=== PATIENT | female | born 1965 | race Caucasian/White ===

== ENCOUNTER 2019-03-11 08:05 | Emergency (ER) | payer OTHER ==
[2019-03-11 08:21] VITALS: BP 134/72
--- NOTE | 2019-03-11 08:23 | ED Physician Documentation ---
PD HPI SKIN - Stated complaint Stated Complaint: WOUND ON R SIDE OF HEAD - Chief complaint Chief Complaint: Wound - History obtained from History obtained from: Patient - History of Present Illness Timing - onset: How many weeks ago (The patient has had a small cyst on the right side of her head for as long as she can remember. She had it evaluated at one point in was deemed benign and not to worry unless it changes. In the last couple of weeks while on a vacation, she has noticed some increase in size of it and some slight tenderness. The last couple of days it is become larger still and more tender in this morning it popped open on its own while she was taking a shower and drained some thick material. She is feeling well otherwise.) Timing - duration: Weeks Timing - details: Gradual onset Location: Scalp (right parietal area) Quality / character: Painful (increasingly the past couple of weeks.), Raised, Swelling, Draining (this morning) Associated symptoms: No: Fever, Myalgias, N/V/D Similar symptoms before: Has not had sx before Recently seen: Not recently seen Review of Systems Constitutional: denies: Fever, Chills, Myalgias GI: denies: Nausea, Vomiting Skin: reports: Lesions PD PAST MEDICAL HISTORY - Past Medical History Past Medical History: No - Past Surgical History Past Surgical History: Yes Ortho: Arthroscopic surgery /[employer]: Oophrectomy - Present Medications Home Medications: Ambulatory Orders Medication Instructions Recorded Confirmed RX: Mupirocin 1 applic TP TID #15 g 03/11/19 Sulfamethox/Trimeth 800/160 1 each PO BID #14 tablet 03/11/19 [Bactrim Ds 800/160] - Allergies Allergies/Adverse Reactions: Allergies Allergy/AdvReac Type Severity Reaction Status Date / Time No Known Drug Allergies Allergy Verified 03/11/19 08:20 - Social History Does the pt smoke?: No Smoking Status: Never smoker Does the pt drink ETOH?: Yes Does the pt have substance abuse?: No PD ED PE NORMAL - Vitals Vital signs reviewed: Yes - General General: Alert and oriented X 3, Well developed/nourished - HEENT HEENT: Pharynx benign - Neck Neck: Supple, no meningeal sign, No adenopathy - Derm Derm: Normal color, Other (The right parietal area had a localized area of swelling above the level of the skin with redness and tenderness. It is about 1-1/2 cm diameter. There is a central hole in it in the cavity of it appears empty. There is some slight surrounding redness of the skin. It appears consistent with a spontaneously drained abscess.) Results - Vitals Vitals: Vital Signs - 24 hr 03/11/19 08:09 Temperature 36.5 C Heart Rate 85 Respiratory 16 Rate Blood Pressure 134/72 H O2 Saturation 99 Oxygen O2 Source Room air PD MEDICAL DECISION MAKING - ED course Complexity details: considered differential (Sounds like a sebaceous cyst that had recently been infected and now is draining spontaneously. There is some residual surrounding redness. Can treat with topical and short course oral antibiotics), d/w patient Departure - Departure Disposition: 01 Home, Self Care Clinical Impression: Infected sebaceous cyst of skin Condition: Stable Record reviewed to determine appropriate education?: Yes Instructions: ED Staph Infec Abx Tx Only Prescriptions: RX: Mupirocin 1 applic TP TID #15 g Sulfamethox/Trimeth 800/160 [Bactrim Ds 800/160] 1 each PO BID #14 tablet Comments: With the infected cyst now draining, that is most of the treatment that is required. We can add some antibiotics topically and orally to take care of the residual amount of infection. Clean the area with soap and water to 3 times a day and apply mupirocin ointment. Bactrim oral antibiotic for the next 3 to 5 days until it looks less red and angry around it. This might even take up to a week to appear fully healed. The wound will then heal from the inside out. Recheck if not healing well over the next week. Discharge Date/Time: 03/11/19 09:19
[2019-03-11] MEDS ORDERED: SULFAMETH/TRIMETH DS 800/160 MG TABLET PO STA (09:05)
[2019-03-11] MEDS ORDERED: MUPIROCIN 2% OINT 1 GM TOP STA (09:05)
== END 2019-03-11 09:19 | disposition home or self-care (01) ==
LOC: ED 08:05
DX: L72.3 Sebaceous cyst (principal); L08.9 Local infection of the skin and subcutaneous tissue, unspecified
CPT/HCPCS: 99281; 99283; A9270

== ENCOUNTER 2020-07-12 14:28 | Emergency (ER) | payer BC ==
[2020-07-12] MEDS ORDERED: KETOROLAC 60 MG/2 ML VIAL IM STA (14:52)
--- NOTE | 2020-07-12 14:55 | ED Physician Documentation ---
History of Present Illness - Stated complaint Stated Complaint: GLF, LT KNEE PX - Chief complaint Chief Complaint: Trauma Ext - History obtained from History obtained from: Patient - History of Present Illness Timing: Last night - Additonal information Additional information: 55-year-old female presents the emergency department with acute left knee pain and swelling. She reports that last night she tripped on a dog toy falling down 2 stairs landing directly on her knee over hardwood. Since then she has had fairly significant swelling of the knee and pain with any weightbearing. She has been using a cane to get around. No history of previous injury to this knee. She has taken Tylenol without relief of symptoms. Review of Systems Constitutional: reports: Fever Ears: reports: Reviewed and negative Nose: reports: Reviewed and negative Throat: reports: Reviewed and negative Cardiac: reports: Chest pain / pressure Respiratory: reports: Reviewed and negative GI: reports: Reviewed and negative : reports: Reviewed and negative Skin: reports: Reviewed and negative Musculoskeletal: reports: Joint pain, Joint swelling (left knee) Neurologic: reports: Reviewed and negative Psychiatric: reports: Reviewed and negative PD PAST MEDICAL HISTORY - Past Medical History Past Medical History: No - Past Surgical History Past Surgical History: Yes Ortho: Arthroscopic surgery /[employer] NURSE: Oophrectomy - Present Medications Home Medications: Ambulatory Orders Medication Instructions Recorded Confirmed Ibuprofen [Motrin] 600 mg PO Q6H PRN #30 tab 07/12/20 - Allergies Allergies/Adverse Reactions: Allergies Allergy/AdvReac Type Severity Reaction Status Date / Time No Known Drug Allergies Allergy Verified 07/12/20 14:36 - Social History Does the pt smoke?: No Smoking Status: Never smoker Does the pt drink ETOH?: Yes Does the pt have substance abuse?: No - Immunizations Immunizations are current?: No Immunizations: TDAP >10years/unknown - POLST Patient has POLST: No PD ED PE EXPANDED - Extremities Extremities: Left knee (Significant swelling and palpable effusion of the knee. Tenderness just below the patella as well as above the patella. Reduced range of motion secondary to pain. No laxity on stress testing though it is painful.) Results - Vitals Vitals: Vital Signs - 24 hr 07/12/20 14:32 Temperature 37 C Heart Rate 85 Respiratory 18 Rate Blood Pressure 122/96 H O2 Saturation 100 Oxygen O2 Source Room air - Rads (name of study) left knee Radiology: Final report received (Mild to moderate effusion. No visualized acute fracture or dislocation.) PD MEDICAL DECISION MAKING - ED course Complexity details: reviewed results, re-evaluated patient, considered differential, d/w patient ED course: 55-year-old female presents the emergency department for evaluation of acute left knee pain sustained last night after a fall down 2 stairs landing directly onto hardwood on her left knee. On exam she does have a palpable effusion and this is correlated with the x-ray of her knee. No obvious fracture seen at this time. At this time I suspected that she has a severe contusion or sprain. She will be placed in a knee immobilizer and given crutches. Advised close follow- up with primary care provider. If not markedly better in 7 to 10 days I would recommend repeat imaging versus MRI. Departure - Departure Disposition: 01 Home, Self Care Clinical Impression: Knee effusion, left Left knee pain Qualifiers: Chronicity: acute Qualified Code(s): M25.562 - Pain in left knee Condition: Stable Record reviewed to determine appropriate education?: Yes Instructions: ED Contusion Lower Ext Prescriptions: Ibuprofen [Motrin] 600 mg PO Q6H PRN #30 tab PRN Reason: Pain Comments: I hope that you are feeling better soon. The x-ray of your knee does not show any obvious breaks or fractures. You do have an effusion which means that there is fluid and swelling around the knee. At this time I suspect that you have a pretty bad contusion or internal bruising. I would like you to wear the Santana bandage when out of bed for the next week. This will help compress the knee and reduce swelling. I would also like you to use the knee immobilizer when out of bed and crutches. Please try and ice your knee for 10 minutes 3 times a day over the next week. If pain and swelling is not markedly better in 7 to 10 days the knee should be alcides-rayed. I do recommend that you schedule close follow-up with your primary care doctor to discuss this ED visit.
--- NOTE | 2020-07-12 15:23 | XRAY Report ---
PROCEDURE: Knee 3 View LT INDICATIONS: fall/ r/o fx TECHNIQUE: 3 views of the left knee(s) were acquired. COMPARISON: None. FINDINGS: Bones: No fractures or dislocations. No suspicious bony lesions. Soft tissues: Mild to moderate joint effusion. No suspicious soft tissue calcifications. IMPRESSION: Mild to moderate effusion. No visualized acute fracture or dislocation. However, occult injury cannot be excluded. Recommend short interval imaging follow-up in 7-10 days as clinically familia cated for additional evaluation. Reviewed by: Kimmie Alas MD on 07/12/2020 3:22 PM PST Approved by: Kimmie Alas MD on 07/12/2020 3:22 PM PST Station ID: [id number]
[2020-07-12 16:31] VITALS: BP 132/69
== END 2020-07-12 16:31 | disposition home or self-care (01) ==
LOC: ED 14:28
DX: M25.462 Effusion, left knee (principal); M25.562 Pain in left knee; W10.9XXA Fall (on) (from) unspecified stairs and steps, initial encounter
CPT/HCPCS: 96372; 99281; 99283

== ENCOUNTER → 2021-02-01 | Outpatient (CLI) | payer BC ==
--- NOTE | 2021-02-01 15:27 | XRAY Report ---
PROCEDURE: Foot 3 View RT INDICATIONS: CONTUSION OF R FOOT TECHNIQUE: 3 views of the foot were acquired. COMPARISON: None FINDINGS: Mild cortical irregularity and possible step-off seen at the base of the fifth toe at the MTP joint. There is possible lucency seen on the oblique view raising possibility of incomplete or nondisplaced fracture. Technically, radiographic findings are indeterminate and recommend correlation for tenderne ss. Elsewhere, no fracture. Mild first MTP osteoarthritis. IMPRESSION: Findings raise the possibility of fracture of the base of the fifth toe proximal phalanx. Please obdulia elate to point tenderness. Follow-up radiographs in 10 days to assess for confirmatory healing sclero sis could be performed. Reviewed by: Presley Mtz MD on 02/01/2021 3:26 PM PDT Approved by: Presley Mtz MD on 02/01/2021 3:26 PM PDT Station ID: [id number]
== END ==
LOC: DI.N 11:12
PROVIDERS: ATTEND Physician Assistant Medical
DX: R93.6 Abnormal findings on diagnostic imaging of limbs (principal)